=== PATIENT | female | born 2000 | race Caucasian/White ===

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

== ENCOUNTER 2021-04-23 15:18 | Emergency (ER) | payer BC, OTHER ==
[~2021-04-23] VITALS: Ht 157.5 cm; Wt 68.0 kg
[2021-04-23] MEDS ORDERED: KETOROLAC TROMETHAMINE 30 MG/ML VIAL IV STA (15:56)
[2021-04-23] MEDS ORDERED: ONDANSETRON HCL INJ 2MG/ML 2ML 2 MG/ML VIAL IV STA (15:56)
[2021-04-23] MEDS ORDERED: FAMOTIDINE 20 MG/2 ML VIAL IV STA (15:56)
[2021-04-23] MEDS ORDERED: SODIUM CHLORIDE 0.9% 1000ML 1,000 ML IV SCH (16:00)
[2021-04-23] MEDS ORDERED: IOPAMIDOL 370 MG/ML 200 ML INFUS..BTL INJ ONE (16:13)
[2021-04-23] MEDS ORDERED: SODIUM CHLORIDE 0.9% 50ML 0 ML ONE (16:13)
[2021-04-23] MEDS ORDERED: DICYCLOMINE HCL 20 MG TAB PO ONE (16:15)
[2021-04-23] MEDS ORDERED: DICYCLOMINE HCL 10 MG CAP ONE (16:19)
[2021-04-23] MEDS ORDERED: KETOROLAC TROMETHAMINE 30 MG/ML VIAL ONE (16:19)
[2021-04-23] MEDS ORDERED: ONDANSETRON HCL INJ 2MG/ML 2ML 2 MG/ML VIAL ONE (16:19)
[2021-04-23] MEDS ORDERED: CEFTRIAXONE 1 GM VIAL ONE (16:20)
[2021-04-23] MEDS ORDERED: FAMOTIDINE 20 MG/2 ML VIAL IV ONE (16:20)
[2021-04-23] MEDS ORDERED: SODIUM CHLORIDE 0.9% 1000ML 1,000 ML ONE (16:20)
[2021-04-23] MEDS ORDERED: CEFTRIAXONE 1 GM VIAL IM ONE (17:00)
[2021-04-23] MEDS ORDERED: AMOXICILLIN500 MG PO (17:05)
[2021-04-23] MEDS ORDERED: IBUPROFEN600 MG PO (17:06)
[2021-04-23] MEDS ORDERED: LEVSIN-SL0.125 MG SL (17:09)
[2021-04-23] MEDS ORDERED: ONDANSETRON ODT4 MG PO (17:18)
== END 2021-04-23 17:44 | disposition home or self-care (01) ==
LOC: FSED 15:40
DX: U07.1 COVID-19 (principal); J02.0 Streptococcal pharyngitis; R05.9 Cough, unspecified; R10.30 Lower abdominal pain, unspecified; F41.9 Anxiety disorder, unspecified; F32.A Depression, unspecified
CPT/HCPCS: 71046; 80048; 80076; 81003; 81025; 83518; 85025; 87086; 87400; 96374; 96375; 96376; 99284; J0696; J1885; J2405; J7030; U0002; Q9967